=== PATIENT | female | born 2000 | race Caucasian/White ===

== ENCOUNTER → 2022-07-31 | Outpatient (CLI) | payer BC | LOC: M PLALAB 10:02 | PROVIDERS: ATTEND Obstetrics & Gynecology | DX: Z34.91 Encounter for supervision of normal pregnancy, unspecified, first trimester (principal); Z3A.00 Weeks of gestation of pregnancy not specified ==

== ENCOUNTER → 2022-09-04 | Outpatient (CLI) | payer BC ==
[2022-09-04 16:01] LABS: HEMATOCRIT 34.3 % (36.0-47.0); MEAN CORPUSCULAR HEMOGLOBIN 27.4 pg (27.0-33.0); MEAN CORPUSCULAR HGB CONC 32.1 g/dl (32.0-36.5); MEAN CORPUSCULAR VOLUME 85.5 fl (80.0-96.0); PLATELET COUNT, AUTOMATED 291 10^3/uL (150-450); RED BLOOD COUNT 4.01 10^6/uL (4.00-5.40); WHITE BLOOD COUNT 7.9 10^3/uL (4.0-10.0)
[2022-09-04 16:45] LABS: FREE T4 1.01 NG/DL (0.76-1.46)
[2022-09-04 17:31] LABS: GC DNA AMPLIFICATION NEGATIVE (NEGATIVE)
[2022-09-04 18:30] LABS: HEPATITIS C VIRUS ABY INDEX < 0.0 INDEX (<0.8); HIV 1&2 SCREEN CENTAUR NEGATIVE (NEGATIVE)
== END ==
LOC: M PLALAB 13:28
PROVIDERS: ATTEND Obstetrics & Gynecology
DX: Z34.91 Encounter for supervision of normal pregnancy, unspecified, first trimester (principal)

== ENCOUNTER 2022-09-18 09:47 | Emergency (ER) | payer BC ==
[~2022-09-18] VITALS: Ht 162.6 cm; Wt 66.1 kg
[2022-09-18 10:50] LABS: APPEARANCE, URINE MANUAL CLOUDY (CLEAR)
[2022-09-18 10:51] LABS: COLOR, URINE MANUAL DK YELLOW (YELLOW)
[2022-09-18 10:53] LABS: GLUCOSE, URINE (UA) MANUAL NEGATIVE (NEGATIVE); KETONE, URINE MANUAL 3+ mg/dL (NEGATIVE); PROTEIN, URINE MANUAL 2+ mg/dL (NEGATIVE); SPECIFIC GRAVITY,URINE MANUAL 1.015 (1.002-1.035)
[2022-09-18 10:54] LABS: BILIRUBIN, URINE MANUAL NEGATIVE (NEGATIVE); BLOOD URINE MANUAL POSITIVE (NEGATIVE); LEUKOCYTE ESTERASE, URINE MAN POSITIVE (NEGATIVE); NITRITE, URINE MANUAL POSITIVE (NEGATIVE); UROBILINOGEN, URINE MANUAL 1 MG mg/dl (NORMAL)
[2022-09-18 11:20] LABS: BACTERIA, URINE LARGE AMOUNT; HYALINE CAST, URINE NONE SEEN /lpf (0-1); SQUAMOUS EPITHELIAL CELL URINE SMALL AMOUNT /hpf (SMALL AMT); WBC, URINE TNTC /hpf (0-3)
[2022-09-18 11:49] LABS: BASO % 0.2 % (0.0-1.0); HEMATOCRIT 33.8 % (36.0-47.0); LYMPH # 0.7 10^3/uL (1.5-5.0); LYMPH % 3.9 % (24.0-44.0); MEAN CORPUSCULAR HEMOGLOBIN 27.3 pg (27.0-33.0); MEAN CORPUSCULAR HGB CONC 32.5 g/dl (32.0-36.5); MEAN CORPUSCULAR VOLUME 83.9 fl (80.0-96.0); MONO # 1.2 10^3/uL (0.0-0.8); MONO % 6.7 % (2.0-8.0); NEUTROPHILS # 15.3 10^3/uL (1.5-8.5); NEUTROPHILS % 88.8 % (36.0-66.0); PLATELET COUNT, AUTOMATED 327 10^3/uL (150-450); RED BLOOD COUNT 4.03 10^6/uL (4.00-5.40); WHITE BLOOD COUNT 17.2 10^3/uL (4.0-10.0)
[2022-09-18] MEDS ORDERED: METOCLOPRAMIDE INJ 10MG/2ML VIAL (J2765 PER 1) IV ONE (11:55)
[2022-09-18] MEDS ORDERED: NS 1,000 ML IV ONE (11:55)
[2022-09-18] MEDS ORDERED: cefTRIAXone SOD 1 GM in D5W MINI-BAG PLUS 50 ML IV ONE (11:55)
[2022-09-18 12:57] LABS: ALBUMIN 3.2 GM/DL (3.2-5.2); ALT/SGPT 12 U/L (12-78); BILIRUBIN,DIRECT 0.2 MG/DL (0.0-0.2); BILIRUBIN,TOTAL 0.7 MG/DL (0.2-1.0); BLOOD UREA NITROGEN 7 MG/DL (7-18); CALCIUM LEVEL 9.1 MG/DL (8.5-10.1); CARBON DIOXIDE LEVEL 22 MEQ/L (21-32); CHLORIDE LEVEL 102 MEQ/L (98-107); CREATININE FOR GFR 0.71 MG/DL (0.55-1.30); GLOMERULAR FILTRATION RATE > 60.0 (>60); GLUCOSE, FASTING 95 MG/DL (70-100); LIPASE 143 U/L (73-393); POTASSIUM SERUM 4.1 MEQ/L (3.5-5.1); SODIUM LEVEL 132 MEQ/L (136-145); TOTAL PROTEIN 7.8 GM/DL (6.4-8.2)
[2022-09-18] MEDS ORDERED: REGL10TA6 PO (15:06)
[2022-09-18] MEDS ORDERED: CEFD300C41 PO (15:06)
[2022-09-18 15:35] VITALS: BP 123/66
== END 2022-09-18 15:37 | disposition home or self-care (01) ==
LOC: M ED 09:47
DX: O23.42 Unspecified infection of urinary tract in pregnancy, second trimester (principal); Z3A.19 19 weeks gestation of pregnancy; Z88.0 Allergy status to penicillin
CPT/HCPCS: 76775; 76815; 80048; 80076; 81000; 83605; 83690; 85025; 87040; 87088; 87186; 96365; 96375; 99284; J0696; J2765

== ENCOUNTER → 2022-09-21 | Outpatient (CLI) | payer BC ==
[~2022-09-21] MED LIST: CEFD300C41 PO; REGL10TA6 PO
== END ==
LOC: M WHC 07:11
PROVIDERS: ATTEND Obstetrics & Gynecology
DX: Z34.92 Encounter for supervision of normal pregnancy, unspecified, second trimester (principal); Z3A.19 19 weeks gestation of pregnancy

== ENCOUNTER → 2022-09-25 | Outpatient (REF) | payer BC | LOC: M SFHCWAGY 10:06 | PROVIDERS: ATTEND Specialist | DX: N39.0 Urinary tract infection, site not specified (principal) ==

== ENCOUNTER → 2022-11-16 | Outpatient (CLI) | payer BC | LOC: M WHC 09:35 | PROVIDERS: ATTEND Obstetrics & Gynecology | DX: Z34.92 Encounter for supervision of normal pregnancy, unspecified, second trimester (principal); Z3A.27 27 weeks gestation of pregnancy ==

== ENCOUNTER → 2022-11-23 | Outpatient (CLI) | payer BC ==
[2022-11-23 10:18] LABS: HEMATOCRIT 29.9 % (36.0-47.0); MEAN CORPUSCULAR HEMOGLOBIN 24.2 pg (27.0-33.0); MEAN CORPUSCULAR HGB CONC 30.1 g/dl (32.0-36.5); MEAN CORPUSCULAR VOLUME 80.4 fl (80.0-96.0); PLATELET COUNT, AUTOMATED 355 10^3/uL (150-450); RED BLOOD COUNT 3.72 10^6/uL (4.00-5.40); WHITE BLOOD COUNT 8.7 10^3/uL (4.0-10.0)
== END ==
LOC: M PLALAB 07:20
PROVIDERS: ATTEND Obstetrics & Gynecology
DX: Z36.89 Encounter for other specified antenatal screening (principal); Z3A.00 Weeks of gestation of pregnancy not specified

== ENCOUNTER → 2022-12-11 | Outpatient (CLI) | payer BC ==
[2022-12-11 07:22] LABS: HEMATOCRIT 29.1 % (36.0-47.0); HEMOGLOBIN 8.7 g/dl (12.0-15.5); MEAN CORPUSCULAR HEMOGLOBIN 23.3 pg (27.0-33.0); MEAN CORPUSCULAR HGB CONC 29.9 g/dl (32.0-36.5); MEAN CORPUSCULAR VOLUME 77.8 fl (80.0-96.0); PLATELET COUNT, AUTOMATED 392 10^3/uL (150-450); RED BLOOD COUNT 3.74 10^6/uL (4.00-5.40); WHITE BLOOD COUNT 10.1 10^3/uL (4.0-10.0)
== END ==
LOC: M LAB 06:49
PROVIDERS: ATTEND Obstetrics & Gynecology
DX: O99.013 Anemia complicating pregnancy, third trimester (principal); O99.810 Abnormal glucose complicating pregnancy; Z3A.00 Weeks of gestation of pregnancy not specified

== ENCOUNTER 2022-12-22 08:55 | Outpatient (CLI) | payer BC ==
[~2022-12-22] VITALS: Ht 162.6 cm; Wt 77.7 kg
[2022-12-22 09:00] VITALS: BP 137/69
[2022-12-22] MEDS ORDERED: IRON SUCROSE 500 MG in NS 250 ML OVER 4 HRS IV ONE (09:30)
[2022-12-22 10:15] VITALS: BP 127/58
[2022-12-22 11:15] VITALS: BP 129/66
[2022-12-22 12:30] VITALS: BP 135/67
[2022-12-22 13:41] VITALS: BP 118/68
== END 2022-12-22 13:55 | disposition home or self-care (01) ==
LOC: M INFU 08:55
PROVIDERS: ATTEND Obstetrics & Gynecology
DX: D64.9 Anemia, unspecified (principal); Z88.0 Allergy status to penicillin; Z88.1 Allergy status to other antibiotic agents
CPT/HCPCS: 96365; 96366; J1756

== ENCOUNTER → 2023-01-11 | Outpatient (REF) | payer BC | LOC: M SFHCWAGY 10:16 | PROVIDERS: ATTEND Obstetrics & Gynecology | DX: Z34.83 Encounter for supervision of other normal pregnancy, third trimester (principal) ==

== ENCOUNTER 2023-02-08 08:25 | Inpatient (IN) | payer BC ==
[~2023-02-08] VITALS: Ht 162.6 cm; Wt 85.0 kg
[2023-02-08] VITALS (19 sets, daily range): BP systolic 116–151; BP diastolic 56–91
[2023-02-08] MEDS ORDERED: PRENTAB9 PO (09:13)
[2023-02-08] MEDS ORDERED: HOME MED LIST COMPLETE! XX SCH (09:15)
[2023-02-08 09:28] LABS: HEMATOCRIT 35.3 % (36.0-47.0); HEMOGLOBIN 10.7 g/dl (12.0-15.5); MEAN CORPUSCULAR HEMOGLOBIN 23.8 pg (27.0-33.0); MEAN CORPUSCULAR HGB CONC 30.3 g/dl (32.0-36.5); MEAN CORPUSCULAR VOLUME 78.6 fl (80.0-96.0); PLATELET COUNT, AUTOMATED 420 10^3/uL (150-450); RED BLOOD COUNT 4.49 10^6/uL (4.00-5.40); WHITE BLOOD COUNT 10.5 10^3/uL (4.0-10.0)
[2023-02-08 09:50] LABS: LDH LACTATE DEHYDROGENASE 171 U/L (120-246)
[2023-02-08 09:51] LABS: ALT/SGPT < 9 U/L (7.0-40); AST/SGOT 11 U/L (<34); BILIRUBIN,TOTAL 0.3 MG/DL (0.3-1.2); GLOMERULAR FILTRATION RATE > 60.0 (>60)
[2023-02-08 09:56] LABS: URIC ACID 4.6 MG/DL (3.1-7.8)
[2023-02-08 09:58] LABS: TOTAL PROTEIN,RANDOM URINE 10.9 MG/DL (0.0-14.0)
[2023-02-08 10:03] LABS: CREATININE,RANDOM URINE 94.1 MG/DL
[2023-02-08] MEDS ORDERED: TRANEXAMIC ACID INJection 1,000 MG in NS 100 ML IV PRN (12:25)
[2023-02-08] MEDS ORDERED: LIDOCAINE 1% MDV 20ML VIAL INFIL PRN (12:25)
[2023-02-08] MEDS: miSOPROStol 50MCG 1/2 TABLET PO SCH ×2 (13:04→17:06)
[2023-02-08] MEDS ORDERED: OXYTOCIN DRIP 30 UNITS in IV 1 EA IV SCH (23:15)
[2023-02-08] MEDS: LR 1,000 ML IV SCH (23:36)
[2023-02-09] VITALS (49 sets, daily range): BP systolic 107–176; BP diastolic 55–95
[2023-02-09] MEDS: LR 1,000 ML IV SCH ×4 (02:23→20:32)
[2023-02-09] MEDS ORDERED: diphenhydrAMINE 50MG/ML VIAL IV PRN ×2 (02:55→15:05)
[2023-02-09] MEDS ORDERED: LR 500 ML IV PRN (02:55)
[2023-02-09] MEDS ORDERED: EPIDURAL/PCA KEYS XX PRN (02:55)
[2023-02-09] MEDS ORDERED: ePHEDrine SULFATE 25 MG/5 ML(5MG/ML) SYRINGE IVP PRN (02:55)
[2023-02-09] MEDS ORDERED: ONDANSETRON 4MG 2ML VIAL IV PRN ×2 (02:55→14:40)
[2023-02-09] MEDS ORDERED: NALOXONE INJ 0.4MG/1ML VIAL IV PRN ×3 (02:55→15:05)
[2023-02-09] MEDS: FENTANYL/ROPIVACAINE/NACL BAG 100 ML EPIDURAL SCH ×2 (03:05→10:55)
[2023-02-09] MEDS: PRENATAL VITAMINS CHEWABLE TABLET PO SCH (09:00)
[2023-02-09] MEDS ORDERED: BICITRA 30ML SOLN UDC PO ONE (12:10)
[2023-02-09] MEDS ORDERED: ceFAZolin SOD 2 GM in IV 1 EA IV ONE (12:10)
[2023-02-09] MEDS ORDERED: AZITHROMYCIN INJ 500 MG, VIAL MATE ADAPTER 1 EACH in NS 250 ML IV ONE (12:10)
[2023-02-09] MEDS ORDERED: LIDOCAINE 2% W/EPINEPHRINE 20ML VIAL **PRES FREE As Ordered ONE (13:27)
[2023-02-09] MEDS ORDERED: OXYTOCIN INJ 10UNITS/ML 1ML VIAL As Ordered ONE ×2 (13:46→14:08)
[2023-02-09] MEDS ORDERED: KETOROLAC 60MG 2ML VIAL As Ordered ONE (13:46)
[2023-02-09] MEDS ORDERED: ONDANSETRON 4MG 2ML VIAL As Ordered ONE (13:46)
[2023-02-09] MEDS ORDERED: MORPHINE PRES-FREE INJ 10 MG/10 ML VIAL As Ordered ONE (13:47)
[2023-02-09] MEDS ORDERED: OXYTOCIN 30UNITS IN 0.9% NaCl 500ML IV BAG As Ordered ONE ×2 (13:55→15:09)
[2023-02-09] MEDS: SLF 3 ML SYR IV SCH (14:00)
[2023-02-09 14:36] LABS: CORD GAS ABE A -2.7; CORD GAS ABE V -3.9; CORD GAS HCO3 V 20.4 MEQ/L; CORD GAS O2 SAT A 47.4 %; CORD GAS O2 SAT V 83.4 %; CORD GAS PCO2 A 43.3 mmHg; CORD GAS PCO2 V 34.9 mmHg; CORD GAS PH A 7.343 UNITS; CORD GAS PH V 7.384 UNITS; CORD GAS PO2 A 21.4 mmHg; CORD GAS PO2 V 38.8 mmHg; CORD GAS SBC A 21.1 MEQ/L; CORD GAS SBC V 20.9 MEQ/L; CORD GAS TCO2 A 24.3 MEQ/L; CORD GAS TCO2 V 21.4 MEQ/L
[2023-02-09] MEDS ORDERED: OXYTOCIN DRIP 30 UNITS in IV 1 EA IV SCH (14:40)
[2023-02-09] MEDS ORDERED: RHOGAM 300MCG (1500IU) INJ IM SCH (14:40)
[2023-02-09] MEDS ORDERED: MORPHINE 2 MG/ML 1ML VIAL IV PRN (14:40)
[2023-02-09] MEDS ORDERED: PERCOCET 5MG/325MG TAB PO PRN (14:40)
[2023-02-09] MEDS ORDERED: ACETAMINOPHEN 500 MG TAB PO PRN (14:40)
[2023-02-09] MEDS ORDERED: ANUSOL HC CREAM 30GM TOP PRN (14:40)
[2023-02-09] MEDS ORDERED: PERCOCET PO ×2 (14:49→14:50)
[2023-02-09] MEDS ORDERED: IBUP80TA PO (14:49)
[2023-02-09] MEDS ORDERED: COLA100C5 PO (14:49)
[2023-02-09] MEDS ORDERED: **NOTE PATIENT COMMENT** MISC XX SCH (15:05)
[2023-02-09] MEDS ORDERED: METOCLOPRAMIDE INJ 10MG/2ML VIAL IV PRN (15:05)
[2023-02-09] MEDS ORDERED: PERCOCET 5MG/325MG TAB As Ordered ONE (15:57)
[2023-02-09] MEDS: PERCOCET 5MG/325MG TAB PO PRN (15:58)
[2023-02-09] MEDS: KETOROLAC 30 MG/ML 1ML VIAL IV SCH (20:31)
[2023-02-09] MEDS: DOCUSATE SODIUM 100MG CAPSULE PO SCH (20:32)
[2023-02-09] MEDS: SIMETHICONE 80MG CHEW TAB PO PRN (20:34)
[2023-02-10 02:00] VITALS: BP 119/62
[2023-02-10] MEDS: KETOROLAC 30 MG/ML 1ML VIAL IV SCH ×2 (03:01→07:58)
[2023-02-10] MEDS: SLF 3 ML SYR IV SCH ×2 (03:03→06:00)
[2023-02-10] MEDS: LR 1,000 ML IV SCH ×2 (04:05→14:40)
[2023-02-10 07:30] LABS: HEMATOCRIT 25.8 % (36.0-47.0); MEAN CORPUSCULAR HEMOGLOBIN 23.7 pg (27.0-33.0); MEAN CORPUSCULAR HGB CONC 30.6 g/dl (32.0-36.5); MEAN CORPUSCULAR VOLUME 77.2 fl (80.0-96.0); PLATELET COUNT, AUTOMATED 324 10^3/uL (150-450); RED BLOOD COUNT 3.34 10^6/uL (4.00-5.40); WHITE BLOOD COUNT 17.5 10^3/uL (4.0-10.0)
[2023-02-10 07:34] LABS: HEMOGLOBIN 7.9 g/dl (12.0-15.5)
[2023-02-10] MEDS: DOCUSATE SODIUM 100MG CAPSULE PO SCH ×2 (07:59→20:15)
[2023-02-10] MEDS: PRENATAL VITAMINS CHEWABLE TABLET PO SCH (07:59)
[2023-02-10 10:00] VITALS: BP 108/52
[2023-02-10] MEDS: PERCOCET 5MG/325MG TAB PO PRN ×2 (13:28→20:36)
[2023-02-10 14:00] VITALS: BP 121/66
[2023-02-10] MEDS: IBUPROFEN 800 MG TAB PO SCH (16:11)
[2023-02-10 18:00] VITALS: BP 130/60
[2023-02-10] MEDS: SIMETHICONE 80MG CHEW TAB PO PRN (20:16)
[2023-02-11] MEDS: IBUPROFEN 800 MG TAB PO SCH ×3 (01:14→18:02)
[2023-02-11 06:00] VITALS: BP 132/59
[2023-02-11] MEDS: DOCUSATE SODIUM 100MG CAPSULE PO SCH (08:10)
[2023-02-11] MEDS: PRENATAL VITAMINS CHEWABLE TABLET PO SCH (08:10)
[2023-02-11] MEDS ORDERED: MEASLES,MUMPS,RUBELLA VACCINE INJ (MMR-II) SC.IMMUN ONE (09:00)
[2023-02-11 10:00] VITALS: BP 140/68
[2023-02-11 14:00] VITALS: BP 133/62
[2023-02-11] MEDS: PERCOCET 5MG/325MG TAB PO PRN (15:16)
== END 2023-02-11 18:03 | disposition home or self-care (01) | DRG 540 ==
LOC: M LDO 08:25 → M LDI 11:04 → M OBS 02-09 16:24
PROVIDERS: ADMIT Obstetrics & Gynecology; ATTEND Obstetrics & Gynecology
PROC: 3E033VJ Introduction of Other Hormone into Peripheral Vein, Percutaneous Approach (ICD-10-PCS; 2023-02-08)
PROC: 10D00Z1 Extraction of Products of Conception, Low, Open Approach (ICD-10-PCS; principal; 2023-02-09 13:00)
DX: O13.4 Gestational [pregnancy-induced] hypertension without significant proteinuria, complicating childbirth (principal); O32.4XX0 Maternal care for high head at term, not applicable or unspecified; Z37.0 Single live birth; Z3A.39 39 weeks gestation of pregnancy; Z88.0 Allergy status to penicillin

== ENCOUNTER → 2024-12-09 | Outpatient (CLI) | payer MEDICAID ==
[~2024-12-09] MED LIST changes: +CEFD1CAP9 PO; -CEFD300C41 PO; +COLA100C5 PO; +IBUP80TA PO; +PERCOCET PO; +PRENTAB9 PO
[2024-12-09 18:14] LABS: HEMATOCRIT 29.6 % (36.0-47.0); HEMOGLOBIN 8.7 g/dl (12.0-15.5); MEAN CORPUSCULAR HGB CONC 29.4 g/dl (32.0-36.5); MEAN CORPUSCULAR VOLUME 71.5 fl (80.0-96.0); PLATELET COUNT, AUTOMATED 464 10^3/uL (150-450); RED BLOOD COUNT 4.14 10^6/uL (4.00-5.40); WHITE BLOOD COUNT 10.5 10^3/uL (4.0-10.0)
[2024-12-09 18:33] LABS: THYROID STIMULATING HORMONE 2.828 uIU/ML (0.55-4.78)
[2024-12-09 19:04] LABS: HIV 1&2 SCREEN NEGATIVE (NEGATIVE)
[2024-12-09 19:12] LABS: HEPATITIS C VIRUS ABY INDEX < 0.02 INDEX (<0.8)
[2024-12-10 09:53] LABS: URIC ACID 3.4 MG/DL (3.1-7.8)
[2024-12-10 09:55] LABS: LDH LACTATE DEHYDROGENASE 137 U/L (120-246)
[2024-12-10 09:56] LABS: ALT/SGPT < 9 U/L (7.0-40); AST/SGOT < 8 U/L (<34); BILIRUBIN,TOTAL 0.3 MG/DL (0.3-1.2); CREATININE FOR GFR 0.55 MG/DL (0.55-1.30); GLOMERULAR FILTRATION RATE > 60.0 (>60)
[2024-12-10 10:19] LABS: TOTAL PROTEIN,RANDOM URINE 7.6 MG/DL (0.0-14.0)
[2024-12-10 10:24] LABS: CREATININE,RANDOM URINE 150.3 MG/DL
[2024-12-10 12:09] LABS: Trichomonas vaginalis (AMP) NOT DETECTED (NEGATIVE)
[2024-12-10 12:32] LABS: GC DNA AMPLIFICATION NEGATIVE (NEGATIVE)
== END ==
LOC: M PLALAB 14:55
PROVIDERS: ATTEND Nurse Practitioner Family
DX: Z34.81 Encounter for supervision of other normal pregnancy, first trimester (principal)

== ENCOUNTER → 2024-12-10 | Outpatient (CLI) | payer MEDICAID | LOC: M RAD 07:14 | PROVIDERS: ATTEND Nurse Practitioner Family | DX: O30.001 Twin pregnancy, unspecified number of placenta and unspecified number of amniotic sacs, first trimester (principal); Z87.59 Personal history of other complications of pregnancy, childbirth and the puerperium; Z3A.12 12 weeks gestation of pregnancy ==

== ENCOUNTER 2024-12-23 12:03 | Outpatient (CLI) | payer OTHER ==
[~2024-12-23 12:03] MED LIST changes: +ALBUTEROL SULFATE 2.5MG/0.5ML INH NEB SOLN INH PRN; +EPINEPHrine INJ 1 MG/ML 1ML AMP IM PRN; +diphenhydrAMINE 50MG/ML VIAL IV PRN; +methylPREDNISolone 125MG 2ML VIAL IV PRN
[2024-12-23] MEDS: IRON SUCROSE 200 MG IVP IV ONE (12:14)
[2024-12-23] MEDS: ACETAMINOPHEN 650 MG PO ONE (12:15)
[2024-12-23] MEDS: diphenhydrAMINE 25MG CAP PO ONE (12:15)
[2024-12-23 13:00] VITALS: BP 124/68; O2SAT 100
== END 2024-12-23 13:00 ==
LOC: M INFU 12:03
PROVIDERS: ATTEND Nurse Practitioner Family
DX: D64.9 Anemia, unspecified (principal); Z88.0 Allergy status to penicillin; Z88.1 Allergy status to other antibiotic agents
CPT/HCPCS: 96374; J1756

== ENCOUNTER 2024-12-30 12:15 | Outpatient (CLI) | payer OTHER ==
[~2024-12-30] VITALS: Ht 162.6 cm; Wt 85.0 kg
[2024-12-30] MEDS: IRON SUCROSE 200MG IVP IV ONE (12:11)
[2024-12-30 12:15] VITALS: BP 119/56; O2SAT 99
[2024-12-30] MEDS ORDERED: ACETAMINOPHEN 650MG PO PRIOR TO INFUSION PO ONE (12:30)
[2024-12-30] MEDS ORDERED: diphenhydrAMINE 25MG PO PRIOR TO INFUSION PO ONE (12:30)
[2024-12-30 12:50] VITALS: BP 128/78; O2SAT 98
== END 2024-12-30 12:50 ==
LOC: M INFU 12:15
PROVIDERS: ATTEND Nurse Practitioner Family
DX: D64.9 Anemia, unspecified (principal); Z88.0 Allergy status to penicillin; Z88.1 Allergy status to other antibiotic agents
CPT/HCPCS: 96374; J1756

== ENCOUNTER → 2025-01-05 | Outpatient (CLI) | payer OTHER ==
[~2025-01-05] MED LIST changes: -ALBUTEROL SULFATE 2.5MG/0.5ML INH NEB SOLN INH PRN; -EPINEPHrine INJ 1 MG/ML 1ML AMP IM PRN; -diphenhydrAMINE 50MG/ML VIAL IV PRN; -methylPREDNISolone 125MG 2ML VIAL IV PRN
[2025-01-05 13:29] LABS: HEMATOCRIT 32.4 % (36.0-47.0); HEMOGLOBIN 9.7 g/dl (12.0-15.5); MEAN CORPUSCULAR HEMOGLOBIN 23.5 pg (27.0-33.0); MEAN CORPUSCULAR HGB CONC 29.9 g/dl (32.0-36.5); MEAN CORPUSCULAR VOLUME 78.5 fl (80.0-96.0); PLATELET COUNT, AUTOMATED 369 10^3/uL (150-450); RED BLOOD COUNT 4.13 10^6/uL (4.00-5.40); WHITE BLOOD COUNT 9.1 10^3/uL (4.0-10.0)
== END ==
LOC: M PLALAB 11:11
PROVIDERS: ATTEND Obstetrics & Gynecology
DX: O99.019 Anemia complicating pregnancy, unspecified trimester (principal)

== ENCOUNTER → 2025-01-28 | Outpatient (CLI) | payer OTHER | LOC: M WHC 07:02 | PROVIDERS: ATTEND Obstetrics & Gynecology | DX: O99.019 Anemia complicating pregnancy, unspecified trimester (principal) ==

== ENCOUNTER → 2025-03-04 | Outpatient (CLI) | payer OTHER | LOC: M WHC 09:10 | PROVIDERS: ATTEND Obstetrics & Gynecology | DX: O30.042 Twin pregnancy, dichorionic/diamniotic, second trimester (principal) ==

== ENCOUNTER 2025-03-09 03:13 | Inpatient (IN) | payer OTHER ==
[2025-03-09] VITALS (22 sets, daily range): BP systolic 82–141; BP diastolic 42–80; TEMP 98.9; O2SAT 93–100
[~2025-03-09] VITALS: Ht 162.6 cm; Wt 86.5 kg
[2025-03-09] MEDS ORDERED: ACET500P3 PO (03:34)
[2025-03-09] MEDS ORDERED: HOME MED LIST COMPLETE! XX SCH (03:35)
[2025-03-09] MEDS ORDERED: FOLI800C PO (03:35)
[2025-03-09] MEDS ORDERED: ASPI81CH33 PO (03:35)
[2025-03-09] MEDS ORDERED: IRON65TA2 PO (03:35)
[2025-03-09] MEDS: PROMETHAZINE 25MG/ML 1ML VIAL IV ONE (04:34)
[2025-03-09] MEDS: LR 1,000 ML IV ONE ×2 (04:34→20:16)
[2025-03-09] MEDS: MORPHINE 10 MG/ML 1ML VIAL IV ONE ×2 (04:37→07:33)
[2025-03-09 05:01] LABS: KETONE, URINE AUTO RFX NEGATIVE (NEGATIVE); RBC, URINE AUTO RFX 3 /HPF (0-3); SQUAM EPITHELIAL CELL UR AURFX 0 /HPF (0-6)
[2025-03-09 05:02] LABS: HEMATOCRIT 32.7 % (36.0-47.0); HEMOGLOBIN 10.3 g/dl (12.0-15.5); MEAN CORPUSCULAR HEMOGLOBIN 26.8 pg (27.0-33.0); MEAN CORPUSCULAR HGB CONC 31.5 g/dl (32.0-36.5); MEAN CORPUSCULAR VOLUME 84.9 fl (80.0-96.0); PLATELET COUNT, AUTOMATED 272 10^3/uL (150-450); RED BLOOD COUNT 3.85 10^6/uL (4.00-5.40)
[2025-03-09 05:58] LABS: LEUKOCYTE ESTERASE UR AUTO RFX 3+ (NEGATIVE); NITRITE, URINE AUTO RFX POSITIVE (NEGATIVE); WBC, URINE AUTO RFX 45 /HPF (0-3)
[2025-03-09] MEDS ORDERED: MINI IV SCH (06:55)
[2025-03-09] MEDS ORDERED: ADV IV SCH (06:55)
[2025-03-09] MEDS ORDERED: DEXTROSE 5% IV SCH (06:55)
[2025-03-09] MEDS ORDERED: AZTREONAM IV SCH (06:55)
[2025-03-09] MEDS: ACETAMINOPHEN 500 MG TAB PO ONE (07:32)
[2025-03-09] MEDS: MORPHINE 10 MG/ML 1ML VIAL SC ONE (07:33)
[2025-03-09] MEDS: ONDANSETRON 4MG 2ML VIAL IV PRN (07:40)
[2025-03-09] MEDS: cefTRIAXone SOD 1 GM in DEXTROSE 5% (D5W) ADV/MINI-BAG 50 ML IV SCH (08:52)
[2025-03-09] MEDS: oxyCODONE 5MG TAB PO PRN (09:26)
[2025-03-09] MEDS: METOCLOPRAMIDE INJ 10MG/2ML VIAL IV SCH (10:14)
[2025-03-09] MEDS ORDERED: oxyCODONE 5MG TAB As Ordered ONE (13:29)
[2025-03-09] MEDS: ACETAMINOPHEN 500 MG TAB PO PRN (17:15)
[2025-03-09] MEDS: LR 1,000 ML IV SCH (18:04)
[2025-03-09] MEDS: FERROUS GLUCONATE 324 MG TAB PO SCH (21:51)
[2025-03-09] MEDS: ASPIRIN 81MG ENTERIC TABLET PO SCH (21:51)
[2025-03-09] MEDS: FOLIC ACID 1MG TAB PO SCH (21:51)
[2025-03-09] MEDS: PRENATAL VITAMINS CHEWABLE TABLET PO SCH (21:51)
[2025-03-10] VITALS (28 sets, daily range): BP systolic 89–118; BP diastolic 42–57; O2SAT 93–97
[2025-03-10] MEDS ORDERED: MORPHINE 4 MG/ML 1ML VIAL IV PRN (00:05)
[2025-03-10] MEDS ORDERED: METOCLOPRAMIDE INJ 10MG/2ML VIAL IV PRN (02:00)
[2025-03-10 08:04] LABS: HEMATOCRIT 26.1 % (36.0-47.0); HEMOGLOBIN 8.4 g/dl (12.0-15.5); MEAN CORPUSCULAR HEMOGLOBIN 27.5 pg (27.0-33.0); MEAN CORPUSCULAR HGB CONC 32.2 g/dl (32.0-36.5); MEAN CORPUSCULAR VOLUME 85.6 fl (80.0-96.0); PLATELET COUNT, AUTOMATED 152 10^3/uL (150-450); RED BLOOD COUNT 3.05 10^6/uL (4.00-5.40); WHITE BLOOD COUNT 17.9 10^3/uL (4.0-10.0)
[2025-03-10 09:15] LABS: LYMPHOCYTES 4 % (16-44); METAMYELOCYTES 3 % (0-0); MONOCYTES 1 % (0-5); NEUTROPHILS 81 % (28-66)
[2025-03-10 09:16] LABS: PLATELET ESTIMATE NORMAL (NORMAL); TOXIC VACUOLATION 2+
== END 2025-03-10 11:44 | disposition short-term general hospital (02) | DRG 566 ==
LOC: M LDO 03:13 → M LDI 07:00
PROVIDERS: ADMIT Obstetrics & Gynecology; ATTEND Obstetrics & Gynecology
DX: O98.812 Other maternal infectious and parasitic diseases complicating pregnancy, second trimester (principal); O23.02 Infections of kidney in pregnancy, second trimester; O34.211 Maternal care for low transverse scar from previous cesarean delivery; Z3A.25 25 weeks gestation of pregnancy; O30.042 Twin pregnancy, dichorionic/diamniotic, second trimester; D64.9 Anemia, unspecified; Z88.0 Allergy status to penicillin; Z79.82 Long term (current) use of aspirin; Z79.899 Other long term (current) drug therapy; O99.013 Anemia complicating pregnancy, third trimester

== ENCOUNTER → 2025-03-20 | Outpatient (CLI) | payer OTHER ==
[~2025-03-20] MED LIST changes: +ACET500P3 PO; +ASPI81CH33 PO; +FOLI800C PO; +IRON65TA2 PO
[2025-03-20 11:35] LABS: HEMATOCRIT 31.2 % (36.0-47.0); HEMOGLOBIN 9.6 g/dl (12.0-15.5); MEAN CORPUSCULAR HEMOGLOBIN 27.7 pg (27.0-33.0); MEAN CORPUSCULAR HGB CONC 30.8 g/dl (32.0-36.5); MEAN CORPUSCULAR VOLUME 89.9 fl (80.0-96.0); PLATELET COUNT, AUTOMATED 498 10^3/uL (150-450); RED BLOOD COUNT 3.47 10^6/uL (4.00-5.40); WHITE BLOOD COUNT 11.4 10^3/uL (4.0-10.0)
[2025-03-20 12:06] LABS: GLUCOSE CHALLENGE TEST 1 HOUR 122 MG/DL (LESS THAN 140)
[2025-03-20 12:46] LABS: HEPATITIS C VIRUS ABY INDEX 0.12 INDEX (<0.8)
[2025-03-20 12:53] LABS: Trichomonas vaginalis (AMP) NOT DETECTED (NEGATIVE)
[2025-03-20 13:17] LABS: GC DNA AMPLIFICATION NEGATIVE (NEGATIVE)
[2025-03-20 14:44] LABS: HIV 1&2 SCREEN REACTIVE (NEGATIVE)
[2025-03-22 08:28] LABS: HIV AG/AB, 4TH GEN NON-REACTIVE (NON-REACTIVE)
== END ==
LOC: M PLALAB 07:28
PROVIDERS: ATTEND Specialist
DX: O30.042 Twin pregnancy, dichorionic/diamniotic, second trimester (principal)

== ENCOUNTER → 2025-04-21 | Outpatient (CLI) | payer OTHER ==
[~2025-04-21] MED LIST changes: +CEPH500C PO
[2025-04-21 16:06] LABS: HEMATOCRIT 35.1 % (36.0-47.0); MEAN CORPUSCULAR HEMOGLOBIN 27.9 pg (27.0-33.0); MEAN CORPUSCULAR HGB CONC 31.3 g/dl (32.0-36.5); MEAN CORPUSCULAR VOLUME 89.1 fl (80.0-96.0); PLATELET COUNT, AUTOMATED 360 10^3/uL (150-450); RED BLOOD COUNT 3.94 10^6/uL (4.00-5.40); WHITE BLOOD COUNT 11.8 10^3/uL (4.0-10.0)
== END ==
LOC: M PLALAB 11:44
PROVIDERS: ATTEND Obstetrics & Gynecology
DX: Z34.83 Encounter for supervision of other normal pregnancy, third trimester (principal)

== ENCOUNTER 2025-05-31 19:44 | Emergency (ER) | payer OTHER ==
[~2025-05-31] VITALS: Ht 162.6 cm; Wt 81.1 kg
[~2025-05-31 19:44] MED LIST changes: -CEPH500C PO
[2025-05-31 21:30] LABS: BASO # 0.0 10^3/uL (0.0-0.2); BASO % 0.3 % (0.0-1.0); EOS # 0.5 10^3/uL (0.0-0.5); EOS % 3.6 % (0.0-3.0); LYMPH # 1.8 10^3/uL (1.5-5.0); LYMPH % 11.9 % (24.0-44.0); MONO # 0.6 10^3/uL (0.0-0.8); MONO % 4.2 % (2.0-8.0); NEUTROPHILS # 11.8 10^3/uL (1.5-8.5); NEUTROPHILS % 79.7 % (36.0-66.0); PLATELET COUNT, AUTOMATED 266 10^3/uL (150-450)
[2025-05-31 21:57] LABS: ALT/SGPT 62 U/L (7.0-40); AST/SGOT 31 U/L (<34); CALCIUM LEVEL 9.5 MG/DL (8.5-10.1); CARBON DIOXIDE LEVEL 24 MMOL/L (20-31); CHLORIDE LEVEL 103 MMOL/L (98-107); CREATININE FOR GFR 0.77 MG/DL (0.55-1.30); GLOMERULAR FILTRATION RATE > 90.0 (>60); POTASSIUM SERUM 4.3 MMOL/L (3.5-5.1); SODIUM LEVEL 141 MMOL/L (136-145)
[2025-05-31 22:42] LABS: KETONE, URINE AUTO RFX NEGATIVE (NEGATIVE); LEUKOCYTE ESTERASE UR AUTO RFX NEGATIVE (NEGATIVE); MUCUS, URINE RFX SMALL (NEGATIVE); NITRITE, URINE AUTO RFX NEGATIVE (NEGATIVE); RBC, URINE AUTO RFX 1 /HPF (0-3); SQUAM EPITHELIAL CELL UR AURFX 0 /HPF (0-6); WBC, URINE AUTO RFX 1 /HPF (0-3)
[2025-05-31] MEDS ORDERED: CEPH500C PO (23:47)
[2025-06-01] MEDS: CEPHALEXIN 500 MG CAP PO ONE (00:21)
[2025-06-01 00:36] VITALS: BP 127/81; TEMP 98.7; O2SAT 98
== END 2025-06-01 00:38 | disposition home or self-care (01) ==
LOC: M ED 19:44
DX: N61.0 Mastitis without abscess (principal); Z88.0 Allergy status to penicillin; Z88.1 Allergy status to other antibiotic agents; Z79.2 Long term (current) use of antibiotics; Z79.810 Long term (current) use of selective estrogen receptor modulators (SERMs)